=== PATIENT | male | born 1940 | race Two or more races ===

== ENCOUNTER 2017-12-17 20:10 | Emergency (ER) | payer MEDICARE ==
[~2017-12-17] VITALS: Ht 167.6 cm; Wt 90.7 kg
[2017-12-17] MEDS ORDERED: cloNIDine HCL 0.1 MG TAB ONE (20:29)
[2017-12-17 20:34] VITALS: BP 171/84
[2017-12-17] MEDS ORDERED: cloNIDine HCL 0.1 MG TAB PO ONE (20:45)
== END 2017-12-17 21:43 | disposition home or self-care (01) ==
LOC: ER 20:10
DX: I10 Essential (primary) hypertension (principal); E66.01 Morbid (severe) obesity due to excess calories; Z68.32 Body mass index [BMI] 32.0-32.9, adult

== ENCOUNTER 2020-09-23 19:50 | Emergency (ER) | payer MEDICARE ==
[~2020-09-23] VITALS: Ht 167.6 cm; Wt 81.6 kg
[2020-09-23 20:00] VITALS: BP 142/84
== END 2020-09-23 21:00 | disposition left against medical advice (07) ==
LOC: ER 19:50
DX: Z46.6 Encounter for fitting and adjustment of urinary device (principal); Z53.21 Procedure and treatment not carried out due to patient leaving prior to being seen by health care provider

== ENCOUNTER 2020-12-17 20:39 | Emergency (ER) | payer MEDICARE ==
[~2020-12-17] VITALS: Ht 167.6 cm; Wt 81.6 kg
[2020-12-18 01:24] VITALS: BP 145/67
== END 2020-12-18 01:10 | disposition home or self-care (01) ==
LOC: ER 20:40
DX: N39.0 Urinary tract infection, site not specified (principal); I10 Essential (primary) hypertension; Z46.6 Encounter for fitting and adjustment of urinary device
CPT/HCPCS: 51702; 81002

== ENCOUNTER 2021-02-21 07:36 | Inpatient (IN) | payer MEDICAID, MEDICARE ==
[~2021-02-21] VITALS: Ht 170.2 cm; Wt 72.6 kg
[2021-02-21] MEDS ORDERED: SODIUM CHLORIDE 0.9% 1,000 ML IV ONE ×2 (08:00)
[2021-02-21] MEDS ORDERED: cefTRIAXone 1GM/50ML D5W 50 ML IV ONE (08:00)
[2021-02-21 08:38] LABS: Basophils # (auto) 0.1 10 ^3/uL (0-0.2); Basophils % (auto) 1.2 % (0.0-2.0); Eosinophils # (auto) 0 10 ^3/uL (0-0.8); Eosinophils % (auto) 0.3 % (0.0-7.0); Hemoglobin 10.8 g/dL (13.5-17.5); Lymphocytes # (auto) 1.4 10 ^3/uL (0.4-5.4); Lymphocytes % (auto) 22.9 % (10.0-50.0); Mean Corpuscular Hemoglobin 31.7 pg (28.0-32.0); Mean Corpuscular Hgb Conc. 31.6 g/dL (32.0-36.0); Mean Corpuscular Volume 100.1 fL (80.0-100.0); Monocytes # (auto) 0.8 10 ^3/uL (0-1.3); Neutrophils # (auto) 3.8 10 ^3/uL (1.6-8.6); Neutrophils % (auto) 62.6 % (37.0-80.0); Nucleated Red Blood Cells % 0.3 %; Red Cell Distribution Width 17.6 % (11.8-14.3); White Blood Cell 6.1 10^3/uL (4.4-10.8)
[2021-02-21 08:53] LABS: Alanine Aminotransferase 13 U/L (16-61); Albumin 3.7 g/dL (3.4-5.0); Anion Gap 24 (5-15); Aspartate Aminotransferase 20 U/L (15-37); BUN/Creatinine Ratio 18.3; Blood Urea Nitrogen 37 mg/dL (7-18); Calcium 9.7 mg/dL (8.5-10.1); Carbon Dioxide 11 mmol/L (21-32); Chloride 102 mmol/L (98-107); GFR African American 41 mL/min; GFR Non-African American 34 mL/min; Glucose 135 mg/dL (74-106); Sodium 137 mmol/L (136-145)
[2021-02-21 08:58] LABS: INR 1.13 (0.9-1.15); Partial Thromboplastin Time 24.6 sec (23.6-33.0)
[2021-02-21 09:07] LABS: Bilirubin, Total 0.4 mg/dL (0.2-1.0); Lactic Acid w/Reflex 16.9 mmol/L (0.4-2.0); Total Protein 8.4 g/dL (6.4-8.2)
[2021-02-21 09:22] LABS: Potassium 6.1 mmol/L (3.5-5.1)
[2021-02-21 09:24] LABS: Alkaline Phosphatase > 2330 U/L (45-117)
[2021-02-21] MEDS ORDERED: LIDOCAINE 2% JELLY 11ml (GLYDO) ONE (10:52)
[2021-02-21] MEDS ORDERED: ACETAMINOPHEN 500 MG TAB PO PRN (11:00)
[2021-02-21] MEDS ORDERED: SODIUM ZIRCONIUM CYCL 10 GM PAK PO ONE (11:00)
[2021-02-21] MEDS ORDERED: HYDROcodone-ACET 5/325MG TAB PO PRN (11:00)
[2021-02-21] MEDS ORDERED: ONDANSETRON HCL 4 MG/2 ML VIAL IV PRN (11:00)
[2021-02-21] MEDS ORDERED: ALBUTEROL SULF 2.5 MG/0.5ML(0.5%) NEB SOLN NEB ONE (11:00)
[2021-02-21] MEDS ORDERED: DOCUSATE SOD 100 MG CAP PO PRN (11:00)
[2021-02-21] MEDS ORDERED: SODIUM BICARBONATE 50ML VIAL 150 ML in D5W 5% 1,000 ML IV ONE (11:00)
[2021-02-21] MEDS ORDERED: DEXTROSE (50%) 50ML SYRG IV ONE ×2 (11:00)
[2021-02-21] MEDS ORDERED: MORPHINE SULFATE INJECTION 2 MG/ML SYRG IV PRN ×2 (11:00)
[2021-02-21] MEDS ORDERED: CALCIUM GLUC 1,000mg/50ml-NS 50 ML IV ONE ×2 (11:00)
[2021-02-21] MEDS ORDERED: InsuLIN REG 1unit/0.01ml Soln (100units/ml) IV ONE ×2 (11:00)
[2021-02-21] MEDS ORDERED: SODIUM BICARBONATE 8.4 % INJ 50ML VIAL IV ONE (11:00)
[2021-02-21] MEDS ORDERED: NITROGLYCERIN 0.4 MG SL TAB SL PRN (11:00)
[2021-02-21] MEDS ORDERED: FUROSEMIDE 20 MG/2 ML VIAL IV ONE (11:15)
[2021-02-21] MEDS ORDERED: LIDOCAINE 2% JELLY 11ml (GLYDO) UR ONE (11:30)
[2021-02-21 12:15] LABS: Urine Bacteria MOD /hpf (None Seen); Urine Blood 2+ /uL (Negative); Urine Specific Gravity 1.013 (1.001-1.035); Urine WBC 19 /hpf (0 - 3); Urine WBC Clumps PRESENT /hpf (None Seen)
[2021-02-21] MEDS: SODIUM ZIRCONIUM CYCL 10 GM PAK PO SCH ×3 (13:10→22:45)
[2021-02-21] MEDS: SODIUM BICARBONATE 50ML VIAL 150 ML in D5W 5% 1,000 ML IV SCH ×2 (14:28→23:36)
[2021-02-21 15:10] LABS: Calcium 9.4 mg/dL (8.5-10.1); Potassium 5.1 mmol/L (3.5-5.1)
[2021-02-21 15:13] LABS: BUN/Creatinine Ratio 21.8
[2021-02-21 17:16] LABS: BUN/Creatinine Ratio 19.3; Calcium 9.1 mg/dL (8.5-10.1); Potassium 5.1 mmol/L (3.5-5.1)
[2021-02-22] MEDS: SODIUM ZIRCONIUM CYCL 10 GM PAK PO SCH (06:55)
[2021-02-22 08:16] LABS: Albumin 2.9 g/dL (3.4-5.0); Anion Gap 18 (5-15); Basophils # (auto) 0 10 ^3/uL (0-0.2); Basophils % (auto) 0.9 % (0.0-2.0); Blood Urea Nitrogen 36 mg/dL (7-18); Calcium 7.7 mg/dL (8.5-10.1); Carbon Dioxide 20 mmol/L (21-32); Chloride 97 mmol/L (98-107); Eosinophils # (auto) 0.1 10 ^3/uL (0-0.8); Eosinophils % (auto) 1.2 % (0.0-7.0); Glucose 103 mg/dL (74-106); Hematocrit 27.7 % (41.0-53.0); Hemoglobin 9.2 g/dL (13.5-17.5); Mean Corpuscular Hemoglobin 32.5 pg (28.0-32.0); Mean Corpuscular Hgb Conc. 33.1 g/dL (32.0-36.0); Mean Corpuscular Volume 98.2 fL (80.0-100.0); Neutrophils # (auto) 2.5 10 ^3/uL (1.6-8.6); Neutrophils % (auto) 54.4 % (37.0-80.0); Nucleated Red Blood Cells % 0.5 %; Potassium 4.3 mmol/L (3.5-5.1); Red Blood Cells 2.82 10^6/uL (4.5-5.90); Red Cell Distribution Width 17.4 % (11.8-14.3); Sodium 135 mmol/L (136-145); White Blood Cell 4.6 10^3/uL (4.4-10.8)
[2021-02-22 08:19] LABS: Lymphocytes % (auto) 26.9 % (10.0-50.0); Monocytes % (auto) 16.6 % (0.0-12.0)
[2021-02-22 08:20] LABS: Lymphocytes # (auto) 1.3 10 ^3/uL (0.4-5.4); Monocytes # (auto) 0.8 10 ^3/uL (0-1.3)
[2021-02-22 08:34] LABS: Alanine Aminotransferase 12 U/L (16-61); Aspartate Aminotransferase 19 U/L (15-37); BUN/Creatinine Ratio 20.7; Bilirubin, Total 0.6 mg/dL (0.2-1.0); GFR African American 49 mL/min; GFR Non-African American 41 mL/min; Total Protein 6.9 g/dL (6.4-8.2)
[2021-02-22 09:37] LABS: Alkaline Phosphatase > 2330 U/L (45-117)
[2021-02-22] MEDS ORDERED: FAMOTIDINE 20 MG TAB PO SCH (10:00)
[2021-02-22] MEDS ORDERED: ENOXAPARIN SOD 30 MG/0.3 ML SYRINGE SC SCH (10:00)
[2021-02-22] MEDS: SODIUM BICARBONATE 50ML VIAL 150 ML in D5W 5% 1,000 ML IV SCH (10:36)
[2021-02-22 11:00] VITALS: BP 115/49
[2021-02-22] MEDS ORDERED: SODIUM BICARBONATE 50ML VIAL 150 ML in D5W 5% 1,000 ML IV SCH (13:30)
[2021-02-22] MEDS ORDERED: FUROSEMIDE 20 MG/2 ML VIAL IV ONE (13:30)
[2021-02-22] MEDS ORDERED: CIPR-173 PO (13:41)
== END 2021-02-22 14:35 | disposition home health service (06) | DRG 699 ==
LOC: ER 07:36 → EDBD 07:36 → TELE 10:55
PROVIDERS: ADMIT Nurse Practitioner Acute Care; ATTEND Internal Medicine
PROC: 0T2BX0Z Change Drainage Device in Bladder, External Approach (ICD-10-PCS; principal; 2021-02-21)
DX: T83.091A Other mechanical complication of indwelling urethral catheter, initial encounter (principal); N13.8 Other obstructive and reflux uropathy; N17.9 Acute kidney failure, unspecified; N13.6 Pyonephrosis; C79.51 Secondary malignant neoplasm of bone; E87.2 Acidosis; E87.5 Hyperkalemia; C61 Malignant neoplasm of prostate; N32.0 Bladder-neck obstruction; I12.9 Hypertensive chronic kidney disease with stage 1 through stage 4 chronic kidney disease, or unspecified chronic kidney disease; Z20.822 Contact with and (suspected) exposure to COVID-19; N18.9 Chronic kidney disease, unspecified; R33.8 Other retention of urine; N40.1 Benign prostatic hyperplasia with lower urinary tract symptoms; Y73.8 Miscellaneous gastroenterology and urology devices associated with adverse incidents, not elsewhere classified; Z85.46 Personal history of malignant neoplasm of prostate; Z86.73 Personal history of transient ischemic attack (TIA), and cerebral infarction without residual deficits; Z87.891 Personal history of nicotine dependence; Z87.440 Personal history of urinary (tract) infections; Y92.89 Other specified places as the place of occurrence of the external cause
CPT/HCPCS: 36415; 71045; 74176; 80048; 80053; 81001; 82550; 82962; 83605; 84153; 84484; 85025; 85379; 85610; 85730; 87040; 87086; 87088; 87186; 87426; 93005; 94640; 96365; 96367; 96375; G0378; J0696; J1815; J2405